=== PATIENT | female | born 1935 | race Caucasian/White ===

== ENCOUNTER 2016-05-16 09:22 | Emergency (ER) | payer MEDICARE, OTHER ==
[~2016-05-16] VITALS: Ht 162.6 cm; Wt 68.2 kg
[2016-05-16] MEDS ORDERED: LOSA50TA37 PO (09:34)
[2016-05-16] MEDS ORDERED: METO-327 PO (09:34)
[2016-05-16 10:42] LABS: BASOPHILS % (AUTO) 0.8 % (0.0-2.0); EOSINOPHILS % (AUTO) 1.5 % (1.0-6.0); HEMATOCRIT 38.6 % (36-46); HEMOGLOBIN 12.8 g/dL (12.0-16.0); LYMPHOCYTES % (AUTO) 27.5 % (22.0-44.0); MEAN CORPUSCULAR HEMOGLOBIN 30.1 pg (26.0-34.0); MEAN CORPUSCULAR HGB CONC 33.2 G/dL (31.0-37.0); MEAN CORPUSCULAR VOLUME 91 fL (80-100); MONOCYTES # (AUTO) 0.4 K/uL (0.1-1.0); MONOCYTES % (AUTO) 5.5 % (2.0-9.0); NEUTROPHILS # (AUTO) 4.7 K/uL (1.8-7.7); NEUTROPHILS % (AUTO) 64.7 % (40.0-70.0); PLATELET COUNT (AUTO) 194 K/uL (150-450); RED BLOOD CELL COUNT(AUTO) 4.26 MIL/uL (4.00-5.20); RED CELL DISTRIBUTION WIDTH 12.8 % (11.5-14.5)
[2016-05-16 10:44] LABS: WHITE BLOOD COUNT (AUTO) 8.7 K/uL (4.5-11.0)
[2016-05-16 10:50] LABS: ANION GAP 5 mmol/L (8-16); CALCIUM, TOTAL 9.6 mg/dL (8.8-10.5); CARBON DIOXIDE 30 mmol/L (22-29); CHLORIDE 106 mmol/L (98-107); CREATININE 0.74 mg/dL (0.60-1.30); GLOMERULAR FILTR. RATE CALC > 60 mL/min (>60); POTASSIUM 3.6 mmol/L (3.5-5.1); SODIUM SERUM 141 mmol/L (136-145); UREA NITROGEN, BLOOD 13 mg/dL (7-18)
[2016-05-16 10:56] LABS: ALANINE AMINOTRANSFERASE 18 U/L (12-78); ALBUMIN 3.5 g/dL (3.4-5.0); ASPARTATE AMINOTRANSFERASE 15 U/L (15-37); BILIRUBIN,TOTAL 0.2 mg/dL (0.1-1.0); TOTAL PROTEIN, SERUM 7.2 g/dL (6.4-8.2)
[2016-05-16 11:08] LABS: RBC MORPHOLOGY COMMENT NORMAL RBC MORPH
[2016-05-16 11:45] LABS: APPEARANCE,URINE CLEAR (CLEAR); GLUCOSE, URINE (UA) NEGATIVE (NEGATIVE); KETONES,URINE NEGATIVE (NEGATIVE); LEUKOCYTE ESTERASE ,URINE NEGATIVE (NEGATIVE); OCCULT BLOOD,URINE NEGATIVE (NEGATIVE); PROTEIN,URINE NEGATIVE (NEGATIVE)
[2016-05-16 11:48] LABS: ADD UA MICROSCOPIC NO
[2016-05-16] MEDS ORDERED: MECLIZINE HCL 25 MG TABLET PO ONE (13:00)
[2016-05-16 13:54] VITALS: BP 151/67
[2016-05-17] MEDS ORDERED: SODIUM CHLORIDE 0.9% 1,000 ML IV ONE (12:37)
== END 2016-05-16 14:18 | disposition home or self-care (01) ==
LOC: EMS 09:27
DX: R42 Dizziness and giddiness (principal); I10 Essential (primary) hypertension; Z90.710 Acquired absence of both cervix and uterus
CPT/HCPCS: 93005; 99285; J7030

== ENCOUNTER 2016-08-13 11:21 | Emergency (ER) | payer MEDICARE, OTHER ==
[~2016-08-13] VITALS: Ht 165.1 cm; Wt 70.0 kg
[~2016-08-13 11:21] MED LIST: LOSA50TA37 PO; METO-327 PO
[2016-08-13] MEDS ORDERED: MECL-111 PO (11:30)
[2016-08-13] MEDS ORDERED: CALC-879 PO (11:30)
[2016-08-13] MEDS ORDERED: SODIUM CHLORIDE 0.9% 1,000 ML IV ONE (12:30)
[2016-08-13] MEDS ORDERED: DIAZEPAM 5 MG/ML 2 ML SYRINGE IVP ONE (12:30)
[2016-08-13 13:57] LABS: BASOPHILS % (AUTO) 0.9 % (0.0-2.0); EOSINOPHILS % (AUTO) 1.9 % (1.0-6.0); HEMATOCRIT 36.7 % (36-46); HEMOGLOBIN 12.5 g/dL (12.0-16.0); LYMPHOCYTES # (AUTO) 2.2 K/uL (1.0-4.8); LYMPHOCYTES % (AUTO) 35.9 % (22.0-44.0); MEAN CORPUSCULAR HEMOGLOBIN 31.1 pg (26.0-34.0); MEAN CORPUSCULAR VOLUME 91 fL (80-100); MONOCYTES # (AUTO) 0.3 K/uL (0.1-1.0); MONOCYTES % (AUTO) 5.5 % (2.0-9.0); NEUTROPHILS # (AUTO) 3.4 K/uL (1.8-7.7); NEUTROPHILS % (AUTO) 55.8 % (40.0-70.0); PLATELET COUNT (AUTO) 237 K/uL (150-450); RED BLOOD CELL COUNT(AUTO) 4.01 MIL/uL (4.00-5.20); RED CELL DISTRIBUTION WIDTH 12.9 % (11.5-14.5); WHITE BLOOD COUNT (AUTO) 6.1 K/uL (4.5-11.0)
[2016-08-13 14:11] LABS: ADD UA MICROSCOPIC NO; APPEARANCE,URINE CLEAR (CLEAR); GLUCOSE, URINE (UA) NEGATIVE (NEGATIVE); KETONES,URINE NEGATIVE (NEGATIVE); LEUKOCYTE ESTERASE ,URINE NEGATIVE (NEGATIVE); OCCULT BLOOD,URINE NEGATIVE (NEGATIVE); PROTEIN,URINE NEGATIVE (NEGATIVE)
[2016-08-13 14:18] LABS: B-TYPE NATRIURETIC PEPTIDE 102 pg/mL (0-100)
[2016-08-13 14:29] LABS: ALANINE AMINOTRANSFERASE 16 U/L (12-78); ALBUMIN 3.6 g/dL (3.4-5.0); ANION GAP 11 mmol/L (8-16); ASPARTATE AMINOTRANSFERASE 15 U/L (15-37); BILIRUBIN,TOTAL 0.2 mg/dL (0.1-1.0); CALCIUM, TOTAL 10.3 mg/dL (8.8-10.5); CARBON DIOXIDE 26 mmol/L (22-29); CHLORIDE 108 mmol/L (98-107); CREATININE 0.78 mg/dL (0.60-1.30); GLOMERULAR FILTR. RATE CALC > 60 mL/min (>60); POTASSIUM 3.9 mmol/L (3.5-5.1); SODIUM SERUM 145 mmol/L (136-145); TOTAL PROTEIN, SERUM 6.9 g/dL (6.4-8.2); UREA NITROGEN, BLOOD 12 mg/dL (7-18)
[2016-08-13 15:17] VITALS: BP 144/58
== END 2016-08-13 16:11 | disposition home or self-care (01) ==
LOC: EMS 11:24
DX: G93.89 Other specified disorders of brain (principal); R42 Dizziness and giddiness; I10 Essential (primary) hypertension; Z90.89 Acquired absence of other organs
CPT/HCPCS: 36415; 70450; 80053; 81003; 83880; 84484; 85025; 93005; 96361; 96374; 99285; J1885; J7030

== ENCOUNTER 2017-02-05 11:35 | Emergency (ER) | payer MEDICARE, OTHER ==
[~2017-02-05] VITALS: Ht 160 cm; Wt 54.0 kg
[~2017-02-05 11:35] MED LIST changes: +CALC-1085 PO; +MECL-111 PO; -METO-327 PO; +METO-416 PO
[2017-02-05] MEDS ORDERED: FAMO20 PO (11:46)
[2017-02-05] MEDS ORDERED: CEPH500 PO (11:46)
[2017-02-05] MEDS ORDERED: ESCI10TA PO (11:46)
[2017-02-05] MEDS ORDERED: LORA10TA7 PO (11:46)
[2017-02-05] MEDS ORDERED: VALS160T2 PO (11:46)
[2017-02-05 12:58] LABS: BASOPHILS % (AUTO) 1.2 % (0.0-2.0); EOSINOPHILS % (AUTO) 1.3 % (1.0-6.0); HEMATOCRIT 38.9 % (36-46); HEMOGLOBIN 13.3 g/dL (12.0-16.0); LYMPHOCYTES # (AUTO) 2.8 K/uL (1.0-4.8); LYMPHOCYTES % (AUTO) 36.3 % (22.0-44.0); MEAN CORPUSCULAR HEMOGLOBIN 30.9 pg (26.0-34.0); MEAN CORPUSCULAR HGB CONC 34.1 G/dL (31.0-37.0); MEAN CORPUSCULAR VOLUME 90 fL (80-100); MONOCYTES % (AUTO) 12.6 % (2.0-9.0); NEUTROPHILS # (AUTO) 3.7 K/uL (1.8-7.7); NEUTROPHILS % (AUTO) 48.6 % (40.0-70.0); PLATELET COUNT (AUTO) 271 K/uL (150-450); RED CELL DISTRIBUTION WIDTH 12.9 % (11.5-14.5)
[2017-02-05 13:12] LABS: ANION GAP 9 mmol/L (8-16); CALCIUM, TOTAL 10.4 mg/dL (8.8-10.5); CARBON DIOXIDE 27 mmol/L (22-29); CHLORIDE 106 mmol/L (98-107); CREATININE 0.81 mg/dL (0.60-1.30); GLOMERULAR FILTR. RATE CALC > 60 mL/min (>60); GLUCOSE,RANDOM 134 mg/dL (70-110); POTASSIUM 3.3 mmol/L (3.5-5.1); SODIUM SERUM 142 mmol/L (136-145); UREA NITROGEN, BLOOD 18 mg/dL (7-18)
[2017-02-05 13:14] LABS: PROTHROMBIN TIME 10.6 SEC (9.4-11.6)
[2017-02-05 13:18] LABS: ALANINE AMINOTRANSFERASE 21 U/L (12-78); ALBUMIN 3.1 g/dL (3.4-5.0); ALKALINE PHOSPHATASE 71 U/L (46-116); ASPARTATE AMINOTRANSFERASE 17 U/L (15-37); B-TYPE NATRIURETIC PEPTIDE 118 pg/mL (0-100); BILIRUBIN,TOTAL 0.2 mg/dL (0.1-1.0); CREATINE KINASE, TOTAL 14 U/L (26-192); TOTAL PROTEIN, SERUM 6.5 g/dL (6.4-8.2)
[2017-02-05] MEDS ORDERED: AZITHROMYCIN 250 MG TABLET PO ONE (15:30)
[2017-02-05 18:29] VITALS: BP 145/86
== END 2017-02-05 19:02 | disposition home or self-care (01) ==
LOC: EDUNIT# 11:35 → EMS 11:37
DX: R05 Cough (principal); M79.89 Other specified soft tissue disorders; R07.9 Chest pain, unspecified; I10 Essential (primary) hypertension
CPT/HCPCS: 93005; 93970; 99285

== ENCOUNTER 2017-02-17 13:43 | Emergency (ER) | payer MEDICARE, OTHER ==
[~2017-02-17] VITALS: Ht 157.5 cm; Wt 63.6 kg
[~2017-02-17 13:43] MED LIST changes: +CEPH500 PO; +ESCI10TA PO; +FAMO20 PO; +LORA10TA7 PO; -LOSA50TA37 PO; +VALS160T2 PO
[2017-02-17 15:24] VITALS: BP 129/55
[2017-02-17] MEDS ORDERED: LIDOCAINE HCL 5% TRANSDERMAL PATCH TD ONE (15:45)
== END 2017-02-17 17:29 | disposition home or self-care (01) ==
LOC: EDUNIT# 13:43 → EMS 13:45
DX: S20.211A Contusion of right front wall of thorax, initial encounter (principal); I10 Essential (primary) hypertension; W18.39XA Other fall on same level, initial encounter; Y93.89 Activity, other specified; Y92.89 Other specified places as the place of occurrence of the external cause; Y99.8 Other external cause status
CPT/HCPCS: 71101; 99284